=== PATIENT | female | born 1980 | race African-American/Black ===

== ENCOUNTER 2019-01-01 11:08 | Emergency (ER) | payer SELFPAY ==
[~2019-01-01] VITALS: Ht 160 cm; Wt 59.0 kg
--- OUTSIDE RECORDS SUMMARY | 2019-01-01 11:15 | XMS REPORT ---
Care Team Providers Care Nurse Receptionist Name Role Phone Ehsan Cervantes CP Unavailable Allergies No Known Allergies Problems Problem Type Condition Code Onset Dates Condition Status Problem Left breast mass N63 Active Problem Low back pain M54.5 Active Problem Depression F32.9 Active Assessment Left breast mass N63 Active Medications Medication Code System Code Instructions Start Date End Date Status Dosage Naprosyn [facility] [address]-15 500 MG Orally every 12 hrs 1 tablet as needed Methocarbamol [facility] [address]-09 500 mg Orally qid 1 Tablet Sulfamethoxazole-Trimethoprim [facility] [address]-84 800-160 MG Orally Twice a day 1 tablet Citalopram Hydrobromide [facility] [address]-76 20 mg Orally Once a day January 30, 2016 1 tablet Procedures Procedure Coding System Code Date COMPUTER DX MAMMOGRAM ADD-ON CPT-4 32718 Feb 14, 2016 Results Name Result Date Reference Range Unit Abnormality Flag Mammography: Diagnostic Unilateral Left Summary Purpose eClinicalWorks Submission
--- OUTSIDE RECORDS SUMMARY | 2019-01-01 11:15 | XMS REPORT ---
Author Author Sandee Neves Organization Outreach Address [address] [place] [address] Care Team Providers Care Head Of Business Development Name Role Phone Sandee Neves Unavailable PROBLEMS Type Condition ICD9-CM Code [id number] Code Onset Dates Condition Status SNOMED Code Problem Intraductal papilloma of left breast D24.2 Active 405827504 Problem Depression F32.9 Active 08291810 Problem Left breast mass N63 Active 97496764 Problem Low back pain M54.5 Active 419989649 ALLERGIES Unknown Allergies SOCIAL HISTORY No smoking Hx information available PLAN OF CARE VITAL SIGNS MEDICATIONS Medication Instructions Dosage Frequency Start Date End Date Duration Status Citalopram Hydrobromide 20 mg Orally Once a day 1 tablet 24h Jan, 30 days Active RESULTS No Results PROCEDURES No Known procedures IMMUNIZATIONS No Known Immunizations
--- OUTSIDE RECORDS SUMMARY | 2019-01-01 11:15 | XMS REPORT ---
Author Author Sandee Neves Organization eClinical[employer] Address Unknown Phone Unavailable Care Team Providers Care Shagger Name Role Phone Sandee Neves CP Unavailable Allergies No Known Allergies Problems Problem Type Condition Code Onset Dates Condition Status Problem Left breast mass N63 Active Problem Low back pain M54.5 Active Problem Depression F32.9 Active Medications No Known Medications Results No Known Results Summary Purpose eClinicalWorks Submission
--- OUTSIDE RECORDS SUMMARY | 2019-01-01 11:15 | XMS REPORT ---
Author Author Rayshawn Garrison [facility] Outpatient Adult Address [address] [place], [place] [id number] Care Team Providers Care Computer Graphics Illustrator Name Role Phone Rayshawn Garrison Unavailable PROBLEMS Type Condition ICD9-CM Code [id number] Code Onset Dates Condition Status SNOMED Code Problem Intraductal papilloma of left breast D24.2 Active 206274139 Problem Bilateral carpal tunnel syndrome G56.03 Active [id number] Problem Seasonal allergic rhinitis due to other allergic trigger J30.89 Active 135412558 Problem Left breast mass N63 Active 29941565 Problem Low back pain M54.5 Active 763441164 Problem Depression F32.9 Active 02573376 Problem Post traumatic stress disorder (PTSD) F43.10 Active 54109713 Problem Cocaine use F14.10 Active 27994316 Problem Cannabis abuse F12.10 Active 48687308 Problem Substance abuse F19.10 Active 60863791 Problem Depression, unspecified depression type F32.9 Active 63594680 Problem Alcohol use disorder, moderate, dependence F10.20 Active 45177597 ALLERGIES No Information ENCOUNTERS Encounter Location Date Diagnosis Outpatient Adult [address] [place] [address] May, Outpatient Adult [address] [place] [address] Apr, Outpatient Adult [address] [place] [address] Apr, Depression, unspecified depression type F32.9 ; Cocaine use F14.10 and Post traumatic stress disorder (PTSD) F43.10 [facility] [address] [place] [phone] Apr, Outreach [address] [facility] [id number] [id number] Apr, Encounter for screening for human immunodeficiency virus [HIV] Z11.4 ; Current smoker F17.200 ; Bilateral carpal tunnel syndrome G56.03 and Tobacco abuse counseling Z71.6 Outpatient Adult [address] [place] [phone] Apr, Psychiatric Services [address] [place] [phone] Mar, Depression, unspecified depression type F32.9 ; Alcohol use disorder, moderate, dependence F10.20 and Post traumatic stress disorder (PTSD) F43.10 Outpatient Adult [address] [place] [phone] Mar, [facility] [address] [place] [address] [id number] Feb, Medication refill Z76.0 Intake Services [address] [place] [phone] Feb, Depression, unspecified depression type F32.9 ; Cannabis abuse F12.10 ; Alcohol use disorder, moderate, dependence F10.20 and Cocaine use F14.[address] [place] [address] [id number] Feb, Substance abuse F19.10 and Follow up Z09 Outreach [address] [place] [address] [id number] Jan, Bilateral carpal tunnel syndrome G56.03 ; Medication refill Z76.0 and Hepatitis C antibody positive in blood R76.[address] [place] [address] [id number] November, Seasonal allergic rhinitis due to other allergic trigger J30.89 and Depression F32.[address] [place] [address] [phone] November, Outreach [address] [place] [address] [id number] Aug, Depression F32.[address] [place] [address] [id number] Jul, Lower respiratory infection J22 and Intraductal papilloma of left breast D24.[address] [place] [address] [id number] Mar, Outreach [address] [place] [address] [id number] Mar, Outreach [address] [place] [address] [place] [phone] Mar, Intraductal papilloma of left breast D24.2 and Cellulitis L03.[address] [id number] Mar, Outreach [address] [id number] Mar, Outreach [address] [id number] Mar, Outreach [address] [id number] Mar, Outreach [address] [id number] Feb, Outreach [address] [id number] Feb, Outreach [address] [id number] Feb, Outreach [address] [id number] Feb, Outreach [address] [id number] Feb, Intraductal papilloma of left breast D24.2 and Cellulitis L03.90 Outreach [address] [id number] Feb, Intraductal papilloma of left breast D24.[address] Outreach [address] [id number] Feb, Outreach [address] [id number] Feb, [facility] [address] [place] [id number] Feb, Myopia, bilateral H52.13 Outreach [address] [id number] Feb, Outreach [address] [id number] Feb, Left breast mass N63 Radiology [address] [place] [id number] Feb, Outreach [address] [id number] Feb, Outreach [address] [place] [id number] [place] [address] [id number] Feb, Outreach [address] [place] [id number] [place] [address] [id number] Feb, Optometry [address] [place] [address] [id number] Feb, Myopia, bilateral H52.13 and Tear film insufficiency H04.[address] [place] [address] [id number] Feb, Left breast mass N63 Radiology [address] [place] [address] [id number] Feb, Left breast mass N63 Outreach [address] [place] [address] [id number] Jan, Hepatitis C B19.20 and Left breast mass N[address] [place] [address] [id number] Jan, Left breast mass N63 Radiology [address] [place] [address] [id number] Jan, Left breast mass N63 Outreach [address] [place] [id number] [place] [address] [id number] Jan, Abnormal finding on urinalysis R82.[address] [place] [address] [id number] Jan, Depression F32.9 ; Left breast mass N63 ; Screening Z13.9 and Low back pain M54.5 [facility] [address] [place] [id number] May, [facility] [address] [place] [address] [phone] Jul, IMMUNIZATIONS No Known Immunizations SOCIAL HISTORY Never Assessed REASON FOR VISIT Reminder call PLAN OF CARE VITAL SIGNS MEDICATIONS Unknown Medications RESULTS No Results PROCEDURES No Known procedures INSTRUCTIONS MEDICATIONS ADMINISTERED No Known Medications MEDICAL (GENERAL) HISTORY Type Description Date Surgical History benign cyst L breast C 05/2016 Hospitalization History Psychiatric: When? How many days? Reason?- [facility] - suicide attempt through attempted overdose Hospitalization History Medical: When? How many days? Reason?- none reported
--- OUTSIDE RECORDS SUMMARY | 2019-01-01 11:15 | XMS REPORT ---
Author Author Sandee Neves Organization eClinicalWorks Address Unknown Phone Unavailable Care Team Providers Care Translator Deaf Name Role Phone Sandee Neves CP Unavailable Allergies, Adverse Reactions, Alerts Substance Reaction Event Type Penicillin Rash, Swelling Drug Allergy Acetaminophen Overdose- does not want to take Drug Allergy Problems Problem Type Condition Code Onset Dates Condition Status Problem Depression F32.9 Active Problem Left breast mass N63 Active Problem Intraductal papilloma of left breast D24.2 Active Assessment Cellulitis L03.90 Active Problem Low back pain M54.5 Active Assessment Intraductal papilloma of left breast D24.2 Active Medications Medication Code System Code Instructions Start Date End Date Status Dosage Methocarbamol [facility] [address]-19 500 mg Orally qid 1 Tablet Clindamycin HCl [facility] [address]-51 300 MG Orally every 8 hrs Mar 06, 2016 1 capsule Naprosyn [facility] [address]-03 500 MG Orally every 12 hrs 1 tablet as needed Natures Tears [facility] [address]-32 0.4 % Ophthalmic 4 times daily as needed for dry eye symptoms Feb 14, 2016 1 drop into each eye Citalopram Hydrobromide [facility] [address]-37 20 mg Orally Once a day January 30, 2016 1 tablet Procedures Procedure Coding System Code Date ketorolac tromethamine (Toradol), INJ CPT-4 J1885 Mar 06, 2016 ESTAB PT LEVEL III CPT-4 37297 Mar 06, 2016 Vital Signs Date/Time: Mar 06, 2016 Temperature 97.7 F Weight 116.4 lbs Height 63 in Pain Scale 8 0-10 BMI 20.62 Index Blood Pressure Diastolic 87 mm Hg Blood Pressure Systolic 134 mm Hg Results No Known Results Summary Purpose eClinicalWorks Submission
--- OUTSIDE RECORDS SUMMARY | 2019-01-01 11:15 | XMS REPORT ---
Author Author Sandee Neves Organization [employer] Address Unknown Phone Unavailable Care Team Providers Care Motorcycle Mechanic Name Role Phone Sandee Neves CP Unavailable Allergies No Known Allergies Problems Problem Type Condition Code Onset Dates Condition Status Problem Depression F32.9 Active Problem Left breast mass N63 Active Problem Intraductal papilloma of left breast D24.2 Active Problem Low back pain M54.5 Active Medications No Known Medications Results No Known Results Summary Purpose eClinicalWorks Submission
--- OUTSIDE RECORDS SUMMARY | 2019-01-01 11:15 | XMS REPORT ---
Author Author Sandee Neves Organization [employer]Clinical[employer] Address Unknown Phone Unavailable Care Team Providers Care Anthropometrist Name Role Phone Sandee Neves CP Unavailable Allergies No Known Allergies Problems Problem Type Condition Code Onset Dates Condition Status Problem Left breast mass N63 Active Problem Low back pain M54.5 Active Problem Depression F32.9 Active Medications No Known Medications Results No Known Results Summary Purpose eClinicalWorks Submission
--- OUTSIDE RECORDS SUMMARY | 2019-01-01 11:16 | XMS REPORT ---
Author Author Sandee Neves Organization eClinicalWorks Address Unknown Phone Unavailable Care Team Providers Care Web Ui Software Engineer Name Role Phone Sandee Neves CP Unavailable Allergies No Known Allergies Problems Problem Type Condition Code Onset Dates Condition Status Problem Depression F32.9 Active Problem Left breast mass N63 Active Problem Intraductal papilloma of left breast D24.2 Active Problem Low back pain M54.5 Active Medications No Known Medications Results No Known Results Summary Purpose eClinicalWorks Submission
--- OUTSIDE RECORDS SUMMARY | 2019-01-01 11:16 | XMS REPORT ---
Author Author Sandee Neves Organization Outreach Address [address] [place] [address] Care Team Providers Care Chief Port Director Name Role Phone Sandee Neves Unavailable PROBLEMS Type Condition ICD9-CM Code APU61-XP Code Onset Dates Condition Status SNOMED Code Problem Intraductal papilloma of left breast D24.2 Active 611724928 Problem Bilateral carpal tunnel syndrome G56.03 Active 48214684699157373 Problem Seasonal allergic rhinitis due to other allergic trigger J30.89 Active 596865149 Problem Low back pain M54.5 Active 694429185 Problem Left breast mass N63 Active 58121669 Problem Depression F32.9 Active 43699984 Problem Post traumatic stress disorder (PTSD) F43.10 Active 00892560 Problem Depression, unspecified depression type F32.9 Active 49069681 Problem Cocaine use F14.10 Active 60987446 Problem Substance abuse F19.10 Active 43405600 Problem Cannabis abuse F12.10 Active 22694351 Problem Alcohol use disorder, moderate, dependence F10.20 Active 59421841 ALLERGIES No Information ENCOUNTERS Encounter Location Date Diagnosis Outpatient Adult [address] [place] [address] May, Outpatient Adult [address] [place] [address] Apr, Outpatient Adult [address] [place] [address] Apr, Depression, unspecified depression type F32.9 ; Cocaine use F14.10 and Post traumatic stress disorder (PTSD) F43.10 [facility] [address] [place] [id number] Apr, Outreach [address] [facility] [id number] [id number] Apr, Encounter for screening for human immunodeficiency virus [HIV] Z11.4 ; Current smoker F17.200 ; Bilateral carpal tunnel syndrome G56.03 and Tobacco abuse counseling Z71.6 Outpatient Adult [address] [place] [address] Apr, Psychiatric Services [address] [place] [phone] Mar, Depression, unspecified depression type F32.9 ; Alcohol use disorder, moderate, dependence F10.20 and Post traumatic stress disorder (PTSD) F43.10 Outpatient Adult [address] [place] [phone] Mar, [facility] [address] [place] [address] [id number] Feb, Medication refill Z76.0 Intake Services [address] [place] [phone] Feb, Depression, unspecified depression type F32.9 ; Cannabis abuse F12.10 ; Alcohol use disorder, moderate, dependence F10.20 and Cocaine use F14.[address] [place] [address] [id number] Feb, Substance abuse F19.10 and Follow up Z09 Outreach [address] [place] [address] [id number] Jan, Bilateral carpal tunnel syndrome G56.03 ; Medication refill Z76.0 and Hepatitis C antibody positive in blood R76.[address] [place] [address] [id number] November, Seasonal allergic rhinitis due to other allergic trigger J30.89 and Depression F32.[address] [place] [address] [id number] November, Outreach [address] [place] [address] [id number] Aug, Depression F32.[address] [place] [address] [id number] Jul, Lower respiratory infection J22 and Intraductal papilloma of left breast D24.[address] [place] [address] [id number] Mar, Outreach [address] [place] [address] [id number] Mar, Outreach [address] [place] [address] [id number] Mar, Intraductal papilloma of left breast D24.2 and Cellulitis L03.[address] [id number] Mar, Outreach [address] [id number] Mar, Outreach [address] [id number] Mar, Outreach [address] [id number] Mar, Outreach [address] [id number] Feb, Outreach [address] [id number] Feb, Outreach [address] [id number] Feb, Outreach [address] [id number] Feb, Outreach [address] [id number] Feb, Intraductal papilloma of left breast D24.2 and Cellulitis L03.[address]reach [address] [id number] Feb, Intraductal papilloma of left breast D24.[address]reach [address] [id number] Feb, Outreach [address] [id number] Feb, [facility] [address] [place] [id number] Feb, Myopia, bilateral H52.13 Outreach [address] [id number] Feb, Outreach [address] [id number] Feb, Left breast mass N63 Radiology [address] [place] [id number] Feb, Outreach [address] [id number] Feb, Outreach [address] [place] [address] [id number] Feb, Outreach [address] [place] [id number] [place] [address] [id number] Feb, Optometry [address] [place] [address] [id number] Feb, Myopia, bilateral H52.13 and Tear film insufficiency H04.[address] [place] [address] [id number] Feb, Left breast mass N63 Radiology [address] [place] [address] [id number] Feb, Left breast mass N63 Outreach [address] [place] [address] [id number] Jan, Hepatitis C B19.20 and Left breast mass N63 Radiology [address] [place] [address] [id number] Jan, Left breast mass N63 Radiology [address] [place] [address] [id number] Jan, Left breast mass N63 Outreach [address] [place] [id number] [place] [address] [id number] Jan, Abnormal finding on urinalysis R82.[address] [place] [address] [id number] Jan, Depression F32.9 ; Left breast mass N63 ; Screening Z13.9 and Low back pain M54.[address] [facility] [address] [place] [address] [id number] May, [facility] [address] [place] [address] [id number] Jul, IMMUNIZATIONS No Known Immunizations SOCIAL HISTORY Never Assessed REASON FOR VISIT Me PLAN OF CARE VITAL SIGNS MEDICATIONS Unknown Medications RESULTS No Results PROCEDURES No Known procedures INSTRUCTIONS MEDICATIONS ADMINISTERED No Known Medications MEDICAL (GENERAL) HISTORY Type Description Date Surgical History benign cyst L breast [facility] 05/2016 Hospitalization History Psychiatric: When? How many days? Reason?- [facility] - suicide attempt through attempted overdose Hospitalization History Medical: When? How many days? Reason?- none reported
--- OUTSIDE RECORDS SUMMARY | 2019-01-01 11:16 | XMS REPORT ---
Author Author Sandee Neves Organization eClinicalWorks Address Unknown Phone Unavailable Care Team Providers Care Handyperson Name Role Phone Sandee Neves CP Unavailable Allergies No Known Allergies Problems Problem Type Condition Code Onset Dates Condition Status Problem Left breast mass N63 Active Problem Low back pain M54.5 Active Problem Depression F32.9 Active Medications No Known Medications Results No Known Results Summary Purpose eClinicalWorks Submission
--- OUTSIDE RECORDS SUMMARY | 2019-01-01 11:16 | XMS REPORT ---
Author Author Sandee Neves Organization [employer]Clinical[employer] Address Unknown Phone Unavailable Care Team Providers Care Purler Name Role Phone Sandee Neves CP Unavailable Allergies No Known Allergies Problems Problem Type Condition Code Onset Dates Condition Status Problem Depression F32.9 Active Problem Left breast mass N63 Active Problem Intraductal papilloma of left breast D24.2 Active Problem Low back pain M54.5 Active Assessment Intraductal papilloma of left breast D24.2 Active Medications No Known Medications Results No Known Results Summary Purpose eClinicalWorks Submission
--- OUTSIDE RECORDS SUMMARY | 2019-01-01 11:16 | XMS REPORT ---
Author Sandee Adams [facility] eClinicalWorks Address Unknown Phone Unavailable Care Team Providers Care Supervisor Prepress Name Role Phone Sandee Neves CP Unavailable Allergies, Adverse Reactions, Alerts Substance Reaction Event Type Penicillin Rash, Swelling Drug Allergy Problems Problem Type Condition Code Onset Dates Condition Status Problem Left breast mass N63 Active Problem Low back pain M54.5 Active Problem Depression F32.9 Active Assessment Screening Z13.9 Active Assessment Low back pain M54.5 Active Assessment Depression F32.9 Active Assessment Left breast mass N63 Active Medications Medication Code System Code Instructions Start Date End Date Status Dosage Naprosyn [facility] [address]-81 500 MG Orally every 12 hrs 1 tablet as needed Citalopram Hydrobromide [facility] [address]-76 20 mg Orally Once a day January 30, [address] [facility] [address]-57 500 mg Orally qid 1 Tablet Sulfamethoxazole-Trimethoprim [facility] [address]-42 800-160 MG Orally Twice a day 1 tablet Procedures Procedure Coding System Code Date ketorolac tromethamine (Toradol), INJ CPT-4 J1885 January 30, 2016 Norflex (Orephenadrine) 30mg, INJ... CPT-4 J2360 January 30, 2016 ESTAB PT LEVEL IV CPT-4 15796 January 30, 2016 Vital Signs Date/Time: January 30, 2016 Temperature 96.9 F Weight 115.8 lbs Height 63 in Pain Scale 0 0-10 BMI 20.51 Index Blood Pressure Diastolic 77 mm Hg Blood Pressure Systolic 117 mm Hg Results Name Result Date Reference Range Unit Abnormality Flag Urine Culture, Routine [id number] ----Urine Culture, Routine Final report [id number] Hgb A1c with eAG Estimation ----Hemoglobin A1c 5.3 20160130 4.8-5.6 % ----Estim. Avg Glu (eAG) 105 20160130 mg/dL Urinalysis, Complete 679226 ----RBC 0-2 58006120 0 - 2 /hpf ----WBC 6-10 82917823 0 - 5 /hpf A ----Crystals Present 20160130 N/A A ----Epithelial Cells (non renal) >10 67552502 0 - 10 /hpf A ----Occult Blood Negative [id number] Negative ----Mucus Threads Present 20160130 Not Estab. ----Ketones 1+ 74074132 Negative A ----Crystal Type Calcium Oxalate 67627554 N/A ----Glucose Negative 84429220 Negative ----Protein 1+ 53164171 Negative/Trace A ----WBC Esterase 1+ 42630437 Negative A ----Urobilinogen,Semi-Qn 0.2 22857406 0.2-1.0 mg/dL ----Bilirubin Negative 55160793 Negative ----Microscopic Examination See below: 20160130 ----Nitrite, Urine Negative 05932624 Negative ----Bacteria Few 20160130 None seen/Few ----Specific [place] 1.038 61400093 1.005-1.030 H ----pH 6.0 24203374 5.0-7.5 ----Urine-Color Yellow 20160130 Yellow ----Appearance Cloudy 20160130 Clear A CBC With Differential Platelet [id number] ----MCHC 32.1 51719974 31.5-35.7 g/dL ----MCH 26.5 77702803 26.6-33.0 pg L ----Platelets 236 20642797 150-379 x10E3/uL ----RDW 13.1 34556313 12.3-15.4 % ----Immature Granulocytes 0 07073453 % ----Immature Grans (Abs) 0.0 39240773 0.0-0.1 x10E3/uL ----Lymphs 33 18857359 % ----Monocytes 8 01616388 % ----Neutrophils 56 23488359 % ----Neutrophils (Absolute) 5.2 42729624 1.4-7.0 x10E3/uL ----Hematocrit 47.1 80183225 34.0-46.6 % H ----Lymphs (Absolute) 3.1 31842431 0.7-3.1 x10E3/uL ----MCV 83 56216106 79-97 fL ----RBC 5.69 64577833 3.77-5.28 x10E6/uL H ----Eos 3 81163595 % ----Basos 0 99309089 % ----Hemoglobin 15.1 32690552 11.1-15.9 g/dL ----Baso (Absolute) 0.0 03241988 0.0-0.2 x10E3/uL ----WBC 9.4 65385878 3.4-10.8 x10E3/uL ----Monocytes(Absolute) 0.7 10366078 0.1-0.9 x10E3/uL ----Eos (Absolute) 0.3 72094026 0.0-0.4 x10E3/uL Panel 948266 (4th generation) ----HIV Screen 4th Generation wRfx Non Reactive 20160130 Non Reactive Comp Metabolic Panel (14) 738466 CMP ----BUN/Creatinine Ratio 14 20160130 8-20 ----eGFR If Africn Am 90 18168912 >59 mL/min/1.73 ----eGFR If NonAfricn Am 78 20007007 >59 mL/min/1.73 ----Creatinine, Serum 0.94 78591844 0.57-1.00 mg/dL ----Chloride, Serum 97 74083145 97-108 mmol/L ----Potassium, Serum 3.9 36891744 3.5-5.2 mmol/L ----Sodium, Serum 141 02060078 134-144 mmol/L ----Protein, Total, Serum 8.9 52758260 6.0-8.5 g/dL H ----Albumin, Serum 5.3 77853311 3.5-5.5 g/dL ----Globulin, Total 3.6 76149738 1.5-4.5 g/dL ----A/G Ratio 1.5 60332509 1.1-2.5 ----BUN 13 49237947 6-20 mg/dL ----Glucose, Serum 90 52222685 65-99 mg/dL ----Carbon Dioxide, Total 19 20160130 18-29 mmol/L ----Calcium, Serum 10.4 20160130 8.7-10.2 mg/dL H ----AST (SGOT) 20 20160130 0-40 IU/L ----ALT (SGPT) 12 20160130 0-32 IU/L ----Bilirubin, Total 0.3 20160130 0.0-1.2 mg/dL ----Alkaline Phosphatase, S 64 20160130 39-117 IU/L TSH reflex to T4F ----TSH 2.130 20160130 0.450-4.500 uIU/mL CA 27.29 ----CA 27.29 17.6 33048736 0.0-38.6 U/mL Lipid Panel 518982 ----HDL Cholesterol 67 20160130 >39 mg/dL ----Triglycerides 71 20160130 0-149 mg/dL ----LDL Cholesterol Calc 116 20160130 0-99 mg/dL H ----VLDL Cholesterol Basilio 14 20160130 5-40 mg/dL ----Cholesterol, Total 197 27277931 100-199 mg/dL Summary Purpose eClinicalWorks Submission
--- OUTSIDE RECORDS SUMMARY | 2019-01-01 11:16 | XMS REPORT ---
Author Author Sandee Neves Organization eClinicalWorks Address Unknown Phone Unavailable Care Team Providers Care Commercial Diver Name Role Phone Sandee Neves CP Unavailable Allergies No Known Allergies Problems Problem Type Condition Code Onset Dates Condition Status Problem Depression F32.9 Active Problem Left breast mass N63 Active Problem Intraductal papilloma of left breast D24.2 Active Problem Low back pain M54.5 Active Medications No Known Medications Results No Known Results Summary Purpose eClinicalWorks Submission
--- OUTSIDE RECORDS SUMMARY | 2019-01-01 11:16 | XMS REPORT ---
Author Ehsan Jimenes eClinicalWorks Address Unknown Phone Unavailable Care Team Providers Care Distributed Generation Project Manager Name Role Phone Ehsan Cervantes CP Unavailable Allergies No Known Allergies Problems Problem Type Condition Code Onset Dates Condition Status Problem Left breast mass N63 Active Problem Low back pain M54.5 Active Problem Depression F32.9 Active Assessment Left breast mass N63 Active Medications Medication Code System Code Instructions Start Date End Date Status Dosage Methocarbamol [facility] [address]-99 500 mg Orally qid 1 Tablet Naprosyn [facility] [address]-24 500 MG Orally every 12 hrs 1 tablet as needed Citalopram Hydrobromide [facility] [address]-24 20 mg Orally Once a day January 30, 2016 1 tablet Sulfamethoxazole-Trimethoprim [facility] [address]-62 800-160 MG Orally Twice a day 1 tablet Procedures Procedure Coding System Code Date COMPUTER DX MAMMOGRAM ADD-ON CPT-4 13115 February 05, 2016 DX MAMMO PRODUC DIR DIGTL IMAG JOHN CPT-4 G0204 February 05, 2016 Results Name Result Date Reference Range Unit Abnormality Flag Mammography: Diagnostic Bilateral Summary Purpose eClinicalWorks Submission
--- OUTSIDE RECORDS SUMMARY | 2019-01-01 11:16 | XMS REPORT ---
Author Author Sandee Neves Organization [facility] Address [address] [place] [address] Care Team Providers Care Potato Chip Frier Name Role Phone Sandee Neves Unavailable PROBLEMS Type Condition ICD9-CM Code NIP26-[place] Code Onset Dates Condition Status SNOMED Code Problem Intraductal papilloma of left breast D24.2 Active 243657419 Problem Bilateral carpal tunnel syndrome G56.03 Active 78386938616313243 Problem Seasonal allergic rhinitis due to other allergic trigger J30.89 Active 255064387 Problem Low back pain M54.5 Active 870356835 Problem Left breast mass N63 Active 89302935 Problem Depression F32.9 Active 78501312 Problem Post traumatic stress disorder (PTSD) F43.10 Active 71455926 Problem Depression, unspecified depression type F32.9 Active 82077102 Problem Cocaine use F14.10 Active 20935096 Problem Substance abuse F19.10 Active 87906993 Problem Cannabis abuse F12.10 Active 03661841 Problem Alcohol use disorder, moderate, dependence F10.20 Active 01447715 ALLERGIES No Information ENCOUNTERS Encounter Location Date Diagnosis Outpatient Adult [address] [place] [address] May, Outpatient Adult [address] [place] [address] Apr, Outpatient Adult [address] [place] [address] Apr, Depression, unspecified depression type F32.9 ; Cocaine use F14.10 and Post traumatic stress disorder (PTSD) F43.10 [facility] [address] [place], [place] [phone] Apr, Out[facility] [address] [facility] [id number] [phone] Apr, Encounter for screening for human immunodeficiency virus [HIV] Z11.4 ; Current smoker F17.200 ; Bilateral carpal tunnel syndrome G56.03 and Tobacco abuse counseling Z71.6 Outpatient Adult [address] [place] [address] Apr, Psychiatric Services [address] [place] [phone] Mar, Depression, unspecified depression type F32.9 ; Alcohol use disorder, moderate, dependence F10.20 and Post traumatic stress disorder (PTSD) F43.10 Outpatient Adult [address] [place] [phone] Mar, [facility] [address] [place] [address] [id number] Feb, Medication refill Z76.0 Intake Services [address] [place] [address] Feb, Depression, unspecified depression type F32.9 ; Cannabis abuse F12.10 ; Alcohol use disorder, moderate, dependence F10.20 and Cocaine use F14.[address] [place] [address] [id number] Feb, Substance abuse F19.10 and Follow up Z09 [facility] [address] [place] [address] [id number] Jan, Bilateral carpal tunnel syndrome G56.03 ; Medication refill Z76.0 and Hepatitis C antibody positive in blood R76.[address] [place] [address] [id number] November, Seasonal allergic rhinitis due to other allergic trigger J30.89 and Depression F32.[address] [place] [address] [id number] November, Outreach [address] [place] [address] [id number] Aug, Depression F32.[address] [place] [id number] Jul, Lower respiratory infection J22 and Intraductal papilloma of left breast D24.[address] [place] [address] [id number] Mar, Out[facility] [address] [place] [address] [phone] Mar, Outreach [address] [place] [address] [id number] Mar, Intraductal papilloma of left breast D24.2 and Cellulitis L03.[address] [id number] Mar, Outreach [address] [id number] Mar, Outreach [address] [id number] Mar, Out[facility] [address] [id number] Mar, Out[facility] [address] [id number] Feb, Out[facility] [address] [id number] Feb, Out[facility] [address] [id number] Feb, Out[facility] [address] [id number] Feb, Outreach [address] [id number] Feb, Intraductal papilloma of left breast D24.2 and Cellulitis L03.[address]reach [address] [id number] Feb, Intraductal papilloma of left breast D24.[address]reach [address] [id number] Feb, Outreach [address] [id number] Feb, [facility] [address] [place] [id number] Feb, Myopia, bilateral H52.13 Outreach [address] [id number] Feb, Outreach [address] [id number] Feb, Left breast mass N63 Radiology [address] [place] [phone] Feb, Outreach [address] [id number] Feb, Out[facility] [address] [place] [address] [phone] Feb, Outreach [address] [place] [id number] [place] [address] [id number] Feb, Optometry [address] [place] [address] [id number] Feb, Myopia, bilateral H52.13 and Tear film insufficiency H04.[address] [place] [address] [id number] Feb, Left breast mass N63 Radiology [address] [place] [address] [id number] Feb, Left breast mass N63 Outreach [address] [place] [address] [id number] Jan, Hepatitis C B19.20 and Left breast mass N[address] [place] [address] [id number] Jan, Left breast mass N[address] [facility] [address] [place] [address] [id number] Jan, Left breast mass N63 Outreach [address] [place] [id number] [place] [address] [id number] Jan, Abnormal finding on urinalysis R82.[address] [place] [address] [id number] Jan, Depression F32.9 ; Left breast mass N63 ; Screening Z13.9 and Low back pain M54.5 [facility] [address] [place] [address] [phone] May, [facility] [address] [place] [address] [phone] Jul, IMMUNIZATIONS No Known Immunizations SOCIAL HISTORY Never Assessed REASON FOR VISIT Today PLAN OF CARE VITAL SIGNS MEDICATIONS Unknown Medications RESULTS No Results PROCEDURES No Known procedures INSTRUCTIONS MEDICATIONS ADMINISTERED No Known Medications MEDICAL (GENERAL) HISTORY Type Description Date Surgical History benign cyst L breast [facility] 05/2016 Hospitalization History Psychiatric: When? How many days? Reason?- [facility] - 2003 - suicide attempt through attempted overdose Hospitalization History Medical: When? How many days? Reason?- none reported
--- OUTSIDE RECORDS SUMMARY | 2019-01-01 11:16 | XMS REPORT ---
Author William Gardner eClinicalWorks Address Unknown Phone Unavailable Care Team Providers Care Pricing Analyst Name Role Phone William Barlow Unavailable Allergies, Adverse Reactions, Alerts Substance Reaction Event Type Penicillin Rash, Swelling Drug Allergy Problems Problem Type Condition Code Onset Dates Condition Status Problem Left breast mass N63 Active Problem Low back pain M54.5 Active Problem Depression F32.9 Active Assessment Myopia, bilateral H52.13 Active Assessment Tear film insufficiency H04.129 Active Medications Medication Code System Code Instructions Start Date End Date Status Dosage Naprosyn [facility] [address]-37 500 MG Orally every 12 hrs 1 tablet as needed Methocarbamol [facility] [address]-43 500 mg Orally qid 1 Tablet Natures Tears [facility] [address]-76 0.4 % Ophthalmic 4 times daily as needed for dry eye symptoms Feb 14, 2016 1 drop into each eye Citalopram Hydrobromide [facility] [address]-36 20 mg Orally Once a day January 30, 2016 1 tablet Procedures Procedure Coding System Code Date DETERMINATION OF REFRACT CPT-4 75459 Feb 14, 2016 Comprehensive CPT-4 66652 Feb 14, 2016 Results No Known Results Summary Purpose eClinicalWorks Submission
--- OUTSIDE RECORDS SUMMARY | 2019-01-01 11:17 | XMS REPORT ---
Author Author Sandee Neves Organization eClinicalWorks Address Unknown Phone Unavailable Care Team Providers Care Medical Sales Representative Name Role Phone Sandee Neves CP Unavailable Allergies, Adverse Reactions, Alerts Substance Reaction Event Type Penicillin Rash, Swelling Drug Allergy Problems Problem Type Condition Code Onset Dates Condition Status Problem Left breast mass N63 Active Problem Low back pain M54.5 Active Problem Depression F32.9 Active Assessment Hepatitis C B19.20 Active Assessment Left breast mass N63 Active Medications Medication Code System Code Instructions Start Date End Date Status Dosage Naprosyn [facility] [address]-22 500 MG Orally every 12 hrs 1 tablet as needed Methocarbamol [facility] [address]-13 500 mg Orally qid 1 Tablet Citalopram Hydrobromide [facility] [address]-26 20 mg Orally Once a day January 30, 2016 1 tablet Sulfamethoxazole-Trimethoprim [facility] [address]-42 800-160 MG Orally Twice a day 1 tablet Procedures Procedure Coding System Code Date ESTAB PT LEVEL III CPT-4 65058 February 07, 2016 Vital Signs Date/Time: February 07, 2016 Temperature 96.9 F Weight 116.0 lbs Height 63 in Pain Scale 7 0-10 BMI 20.55 Index Blood Pressure Diastolic 79 mm Hg Blood Pressure Systolic 112 mm Hg Results No Known Results Summary Purpose eClinicalWorks Submission
--- OUTSIDE RECORDS SUMMARY | 2019-01-01 11:17 | XMS REPORT ---
Author Author Sandee Neves Organization eClinicalWorks Address Unknown Phone Unavailable Care Team Providers Care Senior Customer Service Representative Name Role Phone Sandee Neves CP [...]
--- OUTSIDE RECORDS SUMMARY | 2019-01-01 11:17 | XMS REPORT ---
Author Author Maira Oh Organization eClinicalWorks Address Unknown Phone Unavailable Care Team Providers Care Educational Recruiter Name Role Phone Maira Oh Unavailable Allergies No Known Allergies Problems Problem Type Condition Code Onset Dates Condition Status Problem Left breast mass N63 Active Problem Low back pain M54.5 Active Problem Depression F32.9 Active Assessment Myopia, bilateral H52.13 Active Medications Medication Code System Code Instructions Start Date End Date Status Dosage Naprosyn [facility] [address]-65 500 MG Orally every 12 hrs 1 tablet as needed Natures Tears [facility] [address]-35 0.4 % Ophthalmic 4 times daily as needed for dry eye symptoms Feb 14, 2016 1 drop into each eye Methocarbamol [facility] [address]-58 500 mg Orally qid 1 Tablet Citalopram Hydrobromide [facility] [address]-47 20 mg Orally Once a day January 30, 2016 1 tablet Sulfamethoxazole-Trimethoprim [facility] [address]-19 800-160 MG Orally Twice a day 1 tablet Procedures Procedure Coding System Code Date 1 VISN +/-4.25-+/-7.00 0.12-2.00D CPT-4 V2107 Feb 27, 2016 1 VISN +/-4.25-+/-7.00 0.12-2.00D CPT-4 V2107 Feb 27, 2016 FRAMES PURCHASES CPT-4 V2020 Feb 27, 2016 Results No Known Results Summary Purpose eClinicalWorks Submission
--- OUTSIDE RECORDS SUMMARY | 2019-01-01 11:17 | XMS REPORT ---
Author Author Sandee Neves Organization eClinicalWorks Address Unknown Phone Unavailable Care Team Providers Care Plumbing And Heating Contractor Name Role Phone Sandee Neves CP Unavailable Allergies No Known Allergies Problems Problem Type Condition Code Onset Dates Condition Status Problem Left breast mass N63 Active Problem Low back pain M54.5 Active Problem Depression F32.9 Active Medications No Known Medications Results No Known Results Summary Purpose eClinicalWorks Submission
--- OUTSIDE RECORDS SUMMARY | 2019-01-01 11:17 | XMS REPORT ---
Author Author Sandee Neves Organization eClinicalWorks Address Unknown Phone Unavailable Care Team Providers Care Manager Electrical Name Role Phone Sandee Neves CP Unavailable Allergies No Known Allergies Problems Problem Type Condition Code Onset Dates Condition Status Problem Left breast mass N63 Active Problem Low back pain M54.5 Active Problem Depression F32.9 Active Assessment Left breast mass N63 Active Medications No Known Medications Results No Known Results Summary Purpose eClinicalWorks Submission
--- OUTSIDE RECORDS SUMMARY | 2019-01-01 11:17 | XMS REPORT ---
Author Author Sandee Neves Organization eClinicalWorks Address Unknown Phone Unavailable Care Team Providers Care Maintenance Equipment Operator Name Role Phone Sandee Neves CP Unavailable Allergies No Known Allergies Problems Problem Type Condition Code Onset Dates Condition Status Problem Left breast mass N63 Active Problem Low back pain M54.5 Active Problem Depression F32.9 Active Medications No Known Medications Results No Known Results Summary Purpose eClinicalWorks Submission
--- OUTSIDE RECORDS SUMMARY | 2019-01-01 11:17 | XMS REPORT ---
Author Author Sandee Neves Organization eClinicalWorks Address Unknown Phone Unavailable Care Team Providers Care Headline Writer Name Role Phone Sandee Neves CP Unavailable Allergies, Adverse Reactions, Alerts Substance Reaction Event Type Penicillin Rash, Swelling Drug Allergy Problems Problem Type Condition Code Onset Dates Condition Status Problem Left breast mass N63 Active Problem Low back pain M54.5 Active Problem Depression F32.9 Active Assessment Left breast mass N63 Active Medications Medication Code System Code Instructions Start Date End Date Status Dosage Natures Tears [facility] [address]-40 0.4 % Ophthalmic 4 times daily as needed for dry eye symptoms Feb 14, 2016 1 drop into each eye Citalopram Hydrobromide [facility] [address]-81 20 mg Orally Once a day January 30, 2016 1 tablet Naprosyn [facility] [address]-56 500 MG Orally every 12 hrs 1 tablet as needed Sulfamethoxazole-Trimethoprim [facility] [address]-96 800-160 MG Orally Twice a day 1 tablet Methocarbamol [facility] [address]-72 500 mg Orally qid 1 Tablet Procedures Procedure Coding System Code Date ESTAB PT LEVEL II CPT-4 95136 Feb 20, 2016 Vital Signs Date/Time: Feb 20, 2016 Temperature 96.9 F Weight 119 lbs Height 63 in Pain Scale 0 0-10 BMI 21.08 Index Blood Pressure Diastolic 76 mm Hg Blood Pressure Systolic 116 mm Hg Results No Known Results Summary Purpose eClinicalWorks Submission
--- OUTSIDE RECORDS SUMMARY | 2019-01-01 11:17 | XMS REPORT ---
Author Author Sandee Neves Organization eClinicalWorks Address Unknown Phone Unavailable Care Team Providers Care Solid Surface Fabricator Name Role Phone Sandee Neves CP Unavailable Allergies No Known Allergies Problems Problem Type Condition Code Onset Dates Condition Status Problem Left breast mass N63 Active Problem Low back pain M54.5 Active Problem Depression F32.9 Active Assessment Abnormal finding on urinalysis R82.90 Active Medications No Known Medications Results No Known Results Summary Purpose eClinicalWorks Submission
--- OUTSIDE RECORDS SUMMARY | 2019-01-01 11:17 | XMS REPORT ---
Author Author Sandee Neves Organization eClinicalWorks Address Unknown Phone Unavailable Care Team Providers Care Qa Internship Name Role Phone Sandee Neves CP Unavailable Allergies No Known Allergies Problems Problem Type Condition Code Onset Dates Condition Status Problem Depression F32.9 Active Problem Left breast mass N63 Active Problem Intraductal papilloma of left breast D24.2 Active Problem Low back pain M54.5 Active Medications No Known Medications Results No Known Results Summary Purpose eClinicalWorks Submission
--- OUTSIDE RECORDS SUMMARY | 2019-01-01 11:17 | XMS REPORT ---
Care Team Providers Care Diet Aid Name Role Phone Ehsan Cervantes CP Unavailable Allergies No Known Allergies Problems Problem Type Condition Code Onset Dates Condition Status Problem Left breast mass N63 Active Problem Low back pain M54.5 Active Problem Depression F32.9 Active Assessment Left breast mass N63 Active Medications Medication Code System Code Instructions Start Date End Date Status Dosage Naprosyn [facility] [address]-21 500 MG Orally every 12 hrs 1 tablet as needed Methocarbamol [facility] [address]-03 500 mg Orally qid 1 Tablet Sulfamethoxazole-Trimethoprim [facility] [address]-12 800-160 MG Orally Twice a day 1 tablet Citalopram Hydrobromide [facility] [address]-54 20 mg Orally Once a day January 30, 2016 1 tablet Procedures Procedure Coding System Code Date ULTRASOUND BREAST LIMITED CPT-4 48318 Feb 14, 2016 Results Name Result Date Reference Range Unit Abnormality Flag Ultrasound : Breast Limited - Left Summary Purpose eClinicalWorks Submission
--- OUTSIDE RECORDS SUMMARY | 2019-01-01 11:17 | XMS REPORT ---
Author William Gardner Organization eClinicalWorks Address Unknown Phone Unavailable Care Team Providers Care Gravedigger Name Role Phone William Barlow CP Unavailable Allergies No Known Allergies Problems Problem Type Condition Code Onset Dates Condition Status Problem Left breast mass N63 Active Problem Low back pain M54.5 Active Problem Depression F32.9 Active Medications No Known Medications Results No Known Results Summary Purpose eClinicalWorks Submission
--- OUTSIDE RECORDS SUMMARY | 2019-01-01 11:17 | XMS REPORT ---
Author Author Sandee Neves Organization [employer] Address Unknown Phone Unavailable Care Team Providers Care Glass Finisher Name Role Phone Sandee Neves CP Unavailable Allergies No Known Allergies Problems Problem Type Condition Code Onset Dates Condition Status Problem Depression F32.9 Active Problem Left breast mass N63 Active Problem Intraductal papilloma of left breast D24.2 Active Problem Low back pain M54.5 Active Medications No Known Medications Results No Known Results Summary Purpose [employer] Submission
--- OUTSIDE RECORDS SUMMARY | 2019-01-01 11:17 | XMS REPORT ---
Author Author Sandee Neves Organization [employer] Address Unknown Phone Unavailable Care Team Providers Care Inbound Telemarketer Name Role Phone Sandee Neves CP Unavailable Allergies No Known Allergies Problems Problem Type Condition Code Onset Dates Condition Status Problem Left breast mass N63 Active Problem Low back pain M54.5 Active Problem Depression F32.9 Active Medications No Known Medications Results No Known Results Summary Purpose [employer] Submission
--- OUTSIDE RECORDS SUMMARY | 2019-01-01 11:17 | XMS REPORT ---
Author Author Sandee Neves Organization Out[facility] Address [address] [place] [address] Care Team Providers Care Clinical Services Consultant Name Role Phone Sandee Neves Unavailable PROBLEMS Type Condition ICD9-CM Code [id number] Code Onset Dates Condition Status SNOMED Code Problem Intraductal papilloma of left breast D24.2 Active 031487385 Problem Depression F32.9 Active 22207692 Problem Left breast mass N63 Active 51342292 Problem Low back pain M54.5 Active [id number] ALLERGIES No Known Allergies SOCIAL HISTORY No smoking Hx information available PLAN OF CARE VITAL SIGNS MEDICATIONS No Known Medications RESULTS No Results PROCEDURES No Known procedures IMMUNIZATIONS No Known Immunizations
--- OUTSIDE RECORDS SUMMARY | 2019-01-01 11:17 | XMS REPORT ---
Author Author Sandee Neves Organization [employer] Address Unknown Phone Unavailable Care Team Providers Care Tear Down Matcher Name Role Phone Sandee Neves CP Unavailable Allergies No Known Allergies Problems Problem Type Condition Code Onset Dates Condition Status Problem Depression F32.9 Active Problem Left breast mass N63 Active Problem Intraductal papilloma of left breast D24.2 Active Problem Low back pain M54.5 Active Medications No Known Medications Results No Known Results Summary Purpose [employer] Submission
--- NOTE | 2019-01-01 12:00 | ED General ---
General Chief Complaint: General Problems/Pain Stated Complaint: DRAINAGE OUT OF EYES/ LOWER BACK PAIN Nursing Triage Note: Patient c/o painful lump under right breast and on left lower back along with eye drainage. States she has had the lump for the past year and it has recently just started hurting. Nursing Sepsis Screen: No Definite Risk Source of Information: Patient Exam Limitations: No Limitations History of Present Illness Date Seen by Provider: Jan 01, 2019 Time Seen by Provider: 11:30 Initial Comments Patient is a 38-year-old -Irish female who presents with multiple complaints. Complains rhinorrhea, nasal congestion cough and sneezing for the pa st 3-4 days. Patient also complains of eyelid redness, light sensitivity, and drainage from both eyes with eyes stuck shut in the morning. No fever chills, sweats. No shortness of breath. No nausea vomiting. Patient also complains of lipoma under right breast and low back which have been present for over a year. She states there painful when she coughs. Timing/Duration: 1-2 Days, 3-4 Days Severity: Moderate Associated Systoms: Denies Symptoms Allergies and Home Medications Allergies Coded Allergies: acetaminophen (Verified Allergy, Unknown, 01/01/19) Uncoded Allergies: PENICILLIN (Allergy, Unknown, 01/01/19) Patient Home Medication List Home Medication List Reviewed: Yes Review of Systems Review of Systems Constitutional: see HPI EENTM: see HPI, tearing, hoarseness, nose congestion, nose pain, throat swelling Respiratory: see HPI Cardiovascular: see HPI Gastrointestinal: see HPI Genitourinary: no symptoms reported Musculoskeletal: no symptoms reported Skin: no symptoms reported Psychiatric/Neurological: No Symptoms Reported Hematologic/Lymphatic: No Symptoms Reported Past Nityjkp-Sgukyi-Yaxakh Hx Patient Social History Alcohol Use: Denies Use Recreational Drug Use: No Smoking Status: Current Everyday Smoker Type Used: Electronic/Vapor 2nd Hand Smoke Exposure: No Recent Foreign Travel: No Contact w/Someone Who Travel: No Recent Infectious Disease Expo: No Recent Hopitalizations: No Physical Abuse: No Sexual Abuse: No Mistreated: No Fear: No Seasonal Allergies Seasonal Allergies: No Past Medical History Surgeries: Yes Breast, Hysterectomy, Lumpectomy Respiratory: No Cardiac: No Neurological: No Genitourinary: No Gastrointestinal: No Musculoskeletal: No Endocrine: No HEENT: No Cancer: No Psychosocial: Yes Depression Integumentary: No Blood Disorders: Yes (Hep C) Physical Exam Vital Signs Vital Signs - First Documented 01/01/19 11:15 Temp 97.8 Pulse 105 Resp 20 B/P (MAP) 120/85 (97) Pulse Ox 97 O2 Delivery Room Air Capillary Refill : Less Than 3 Seconds Height, Weight, BMI Height: 5'3.00" Weight: 130lbs. oz. 58.816098jw; BMI Method:Stated General Appearance: No Apparent Distress, Anxious Eyes: Bilateral Eye Lid Inflammation, Bilateral Eye Photophobia, Bilateral Eye Other (bilateral conjunctivitis with blepharitis, no purulent drainage) HEENT: Moist Mucous Membranes (is a congestion, rhinorrhea, turbinate swelling and erythema) Neck: Full Range of Motion, Supple Respiratory: Chest Non Tender, Lungs Clear, Normal Breath Sounds Cardiovascular: Regular Rate, Rhythm, No Edema, Normal Peripheral Pulses Gastrointestinal: Soft, Other (right upper quadrant subcutaneous mass compresses on exam and likely tender consistent lipoma) Extremity: Normal Capillary Refill, Normal Inspection Neurologic/Psychiatric: Alert, Oriented x3 Skin: Normal Color, Warm/Dry, Other Focused Exam Sepsis Stage: Ruled Out Respiratory: Chest Non Tender Skin: normal color Progress/Results/Core Measures Suspected Sepsis Recent Fever Within 48 Hours: No Infection Criteria Present: None New/Unexplained Altered Menta: No Sepsis Screen: No Definite Risk SIRS Temperature:97.8 Pulse: 105 Respiratory Rate: 20 Blood Pressure 120 /85 Mean: 97 Results/Orders Vital Signs/I&O 01/01/19 11:15 Temp 97.8 Pulse 105 Resp 20 B/P (MAP) 120/85 (97) Pulse Ox 97 O2 Delivery Room Air Capillary Refill : Less Than 3 Seconds Blood Pressure Mean: 97 Departure Communication (Admissions) Exam consistent with seasonal allergies with blepharitis and bacterial conjunctivitis Impression Primary Impression: Seasonal allergies Additional Impressions: Blepharitis of both eyes Conjunctivitis due to adenovirus, both eyes Disposition: 01 HOME, SELF-CARE Condition: Improved Departure-Patient Inst. Referrals: NO,LOCAL PHYSICIAN (PCP/Family) Primary Care Physician Patient Instructions: Conjunctivitis (Pinkeye) (DC), Seasonal Allergies (DC), Blepharitis Scripts Guaifenesin/Pseudoephedrne HCl (Mucinex D ER 1,200-120 mg Tab) 1 Each Tab.er.12h 1 EACH PO Q12H, #20 TAB Prov: JESUS NEVAREZ DO 01/01/19 Prednisolone/Sulfacetamide (Blephamide Eye Drops) 5 Ml Susp 4 ML OP Q4H, #1 ML Prov: JESUS NEVAREZ DO 01/01/19 Cephalexin (Keflex) 500 Mg Capsule 500 MG PO TID, #30 CAP Prov: JESUS NEVAREZ DO 01/01/19 JESUS NEVAREZ DO Jan 01, 2019 12:00
[2019-01-01] MEDS ORDERED: GUAI-365 PO (12:05)
[2019-01-01] MEDS ORDERED: CEPH-507 PO (12:05)
[2019-01-01] MEDS ORDERED: PRDS5OP OP (12:05)
[2019-01-01 12:16] VITALS: BP 111/85
== END 2019-01-01 12:16 | disposition home or self-care (01) ==
LOC: ER FS 11:11
DX: J30.2 Other seasonal allergic rhinitis (principal); B30.1 Conjunctivitis due to adenovirus; H01.003 Unspecified blepharitis right eye, unspecified eyelid; H01.006 Unspecified blepharitis left eye, unspecified eyelid; F17.290 Nicotine dependence, other tobacco product, uncomplicated; F32.9 Major depressive disorder, single episode, unspecified; B19.20 Unspecified viral hepatitis C without hepatic coma; Z86.018 Personal history of other benign neoplasm; Z88.5 Allergy status to narcotic agent; Z88.0 Allergy status to penicillin; Z90.11 Acquired absence of right breast and nipple
CPT/HCPCS: 99281